=== PATIENT | male | born 1980 | race African-American/Black ===

== ENCOUNTER 2017-07-15 19:55 | Emergency (ER) | payer SELFPAY ==
[~2017-07-15] VITALS: Ht 162.6 cm; Wt 77.1 kg
[2017-07-15 21:15] VITALS: BP 157/103
[2017-07-15] MEDS ORDERED: TRAM-48 PO (21:47)
--- NOTE | 2017-07-15 21:47 | PHYS DOC ---
Past Medical History Past Medical History: No Pertinent History Past Surgical History: No Surgical History Alcohol Use: None Drug Use: None Adult General Chief Complaint Chief Complaint: HAND PROBLEM HPI HPI Patient is a 37 year old [place]ian-speaking male who presents with fish hook to the left hand that happened today he is right handed. Review of Systems Review of Systems Constitutional: Denies fever or chills [] Eyes: Denies change in visual acuity, redness, or eye pain [] HENT: Denies nasal congestion or sore throat [] Respiratory: Denies cough or shortness of breath [] Cardiovascular: No additional information not addressed in HPI [] GI: Denies abdominal pain, nausea, vomiting, bloody stools or diarrhea [] : Denies dysuria or hematuria [] Musculoskeletal: Denies back pain or joint pain [] Integument: fish hook to the left hand Neurologic: Denies headache, focal weakness or sensory changes [] Endocrine: Denies polyuria or polydipsia [] Current Medications Current Medications Current Medications Medications (Trade) Dose Ordered Sig/Kyler Start Time Stop Time Status Last Admin Dose Admin Diphtheria/ Tetanus/Acell Pertussis (Boostrix) 0.5 ml ONCE ONCE 07/15/17 22:00 07/15/17 22:01 DC 07/15/17 22:01 0.5 ML Lidocaine/Sodium Bicarbonate (Buffered Lidocaine 1%) 20 ml 1X ONCE 07/15/17 22:00 07/15/17 22:01 DC 07/15/17 22:00 20 ML Allergies Allergies Allergies Coded Allergies Type Severity Reaction Last Updated Verified No Known Drug Allergies 07/15/17 No Physical Exam Physical Exam Constitutional: Well developed, well nourished, no acute distress, non-toxic appearance. [] Skin: The end of a fishhook can be seen on the left thenar eminences, the rest of the fishhook is empty in the skin. Full range of motion to the left hand. Neurovascular exam is intact to the left hand. +2 left radial pulse. Cap refill less than 2 seconds. Back: No tenderness, no CVA tenderness. [] Extremities: No tenderness, no cyanosis, no clubbing, ROM intact, no edema. [] Neurologic: Alert and oriented X 3, normal motor function, normal sensory function, no focal deficits noted. [] Psychologic: Affect normal, judgement normal, mood normal. [] Current Patient Data Vital Signs Vital Signs Date Time Temp Pulse Resp B/P (MAP) Pulse Ox O2 Delivery O2 Flow Rate FiO2 07/15/17 21:15 98.8 87 18 99 Room Air 98.8 EKG EKG [] Radiology/Procedures Radiology/Procedures Indication: [place] to the left hand Procedure: The area of the foreign body was left hand. Local anesthesia over the foreign body site was 1% buffered lidocaine. The fishhook was pushed through the skin and cut with a pair of pliers and pulled out successfully from the skin. The area was cleaned and covered. Tetanus was updated. Course & Med Decision Making Course & Med Decision Making Pertinent Labs and Imaging studies reviewed. (See chart for details) Patient is in the ED with fishhook to the left hand which was removed successfully as noted in procedures. Tetanus was updated. Discharged in stable condition and provided return precautions. Dragon Disclaimer Dragon Disclaimer This electronic medical record was generated, in whole or in part, using a voice recognition dictation system. Departure Departure Impression: Primary Impression: Fish hook injury of hand Disposition: 01 HOME, SELF-CARE Condition: STABLE Referrals: NO PCP (PCP) follow up with your doctor as needed. Patient Instructions: Fish Hook Removal Additional Instructions: We removed a fish hook from your left hand. Keep it clean and dry. Follow-up with your doctor in 1-2 weeks as needed. Scripts Tramadol Hcl (ULTRAM) 50 Mg Tablet 1 TAB PO Q6HRS, #30 TAB Prov: EDITH BOWMAN APRN 07/15/17 Problem Qualifiers Primary Impression: Fish hook injury of hand Encounter type: initial encounter Laterality: left Qualified Codes: S69.92XA - Unspecified injury of left wrist, hand and finger(s), initial encounter EDITH BOWMAN APRN Jul 15, 2017 21:47
[2017-07-15] MEDS ORDERED: DIPHTH,PERTUSS(ACELL),TET TOX 0.5 ML DISP.SYRIN. VAX IM ONE (22:00)
[2017-07-15] MEDS ORDERED: LIDOCAINE 1% / SOD BICARB 8.4% 20 ML VIAL. IJ ONE (22:00)
== END 2017-07-15 22:49 | disposition home or self-care (01) ==
LOC: ER 19:55
DX: S60.552A Superficial foreign body of left hand, initial encounter (principal); X58.XXXA Exposure to other specified factors, initial encounter; Y93.89 Activity, other specified; Y92.89 Other specified places as the place of occurrence of the external cause; Y99.8 Other external cause status
CPT/HCPCS: 90471; 90715; 96372; 99284-25